=== PATIENT | female | born 1980 | race Caucasian/White ===

== ENCOUNTER 2021-08-20 07:43 | Inpatient (IN) | payer OTHER, SELFPAY ==
[2021-08-20] VITALS (19 sets, daily range): BP systolic 98–130; BP diastolic 56–79; PULSE 66–115; RESP 14–32; TEMP 35.8–36.9; O2SAT 86–100; BMI 28.7
--- NOTE | ~2021-08-20 | XR_ITS ---
EXAMINATION: XR chest 1V portable DATE: 08/23/2021 06:41 INDICATION: Shortness of breath TECHNIQUE: frontal view of the chest was obtained. COMPARISON: Chest radiograph and CT dated 08/20/2021 FINDINGS: No significant change in subtle patchy airspace opacities in the right mid to lower lung zone and to lesser degree at the medial left lower lung zone consistent with pneumonia. No pleural effusion or pn eumothorax. The cardiomediastinal silhouette is normal. Mild thoracic dextrocurvature. IMPRESSION: 1. Unchanged opacities in the right mid to lower and left lower lung zones consistent with pneumonia. Reviewed, dictated and finalized at location A. IMPRESSION: 1. Unchanged opacities in the right mid to lower and left lower lung zones cons istent with pneumonia.
--- NOTE | ~2021-08-20 | XR_ITS ---
XR chest 1V portable 08/20/2021 08:23 Indication: Patient is unresponsive Procedure: AP portable chest Comparison: Comparison to multiple prior studies sequentially, with oldest reviewed study dated 03/05. Findings: There is extensive bilateral airspace disease, consistent with pneumonia. No pleural effusi on or pneumothorax. No acute osseous abnormality. Impression: 1: Bilateral asymmetric airspace disease, compatible with pneumonia. Reviewed, dictated and finalized at location B. Impression: 1: Bilateral asymmetric airspace disease, compatible with pneumonia.
--- NOTE | ~2021-08-20 | XR_ITS ---
EXAMINATION: XR chest 1V portable DATE: 08/23/2021 10:26 INDICATION: Shortness of breath TECHNIQUE: frontal view of the chest was obtained. COMPARISON: Chest radiograph dated 08/23/2021 at 6:20 AM FINDINGS: Interval increase in pulmonary vascular congestion but without letha pulmonary edema. No pleural effu kathrin or pneumothorax. The cardiomediastinal silhouette is normal. Peripheral IV at the left upper arm . IMPRESSION: 1. Interval development of pulmonary vascular congestion without letha pulmonary edema. Reviewed, dictated and finalized at location A. IMPRESSION: 1. Interval development of pulmonary vascular congestion without letha pulmonar y edema.
--- NOTE | ~2021-08-20 | CT_ITS ---
EXAMINATION: CTA chest PE protocol DATE: 08/20/2021 13:48 INDICATION: Unresponsive. TECHNIQUE: Computed tomography angiography (CTA) of the chest was performed with 100 mL Omnipaque-350 intravenous contrast timed to evaluate the pulmonary arteries. Coronal maximum intensity projection 3D-reconstructions were created by the technologist. Automated exposure control and iterative reconst ruction technique were employed. The dose-length product was 222.43 mGy-cm. COMPARISON: CT abdomen 07/16/2017 FINDINGS: There are patchy airspace and groundglass opacities in all lobes with a posterior predomina nce. No pleural effusion. The heart size is normal. No pericardial effusion. There is no pulmonary em bolus. There is thoracic dextrocurvature and mild spondylosis. IMPRESSION: 1. No pulmonary embolus. 2. Diffuse lung disease, consistent with pneumonia versus pulmonary edema. Reviewed, dictated and finalized at location A.
[2021-08-20] MEDS: NALOXONE HCL INJ 2 MG/2 ML AMP (07:49)
--- NOTE | 2021-08-20 07:53 | ECG_ITS ---
Measurements Intervals [place] Rate: 99 P: 65 NM: 139 QRS: 74 QRSD: 87 T: 58 QT: 347 QTc: 446 Interpretive Statements SINUS RHYTHM NORMAL ECG Electronically Signed On 08-20-2021 8:09:20 CDT by Israel Tong D.O.
--- NOTE | 2021-08-20 07:53 | ED.OVERDOSE ---
HPI - Overdose General Chief Complaint: Overdose Stated Complaint: took cocaine, not feeling well, arouses to painful Time Seen by Provider: 08/20/21 07:52 Source: family, EMS and RN notes reviewed Mode of arrival: EMS Limitations: clinical condition History of Present Illness HPI Narrative: EMT got called by the patient's kids who found that her mom on the floor of the bathroom, lethargic, sleepy, slowly answering question. Patient told EMT that she had cocaine. Related Data Allergies Allergy/AdvReac Type Severity Reaction Status Date / Time No Known Allergies Allergy Unverified 04/28/18 08:42 Review of Systems Review of Systems: ROS unobtainable: Yes unobtainable due to mental status PMFSH Family History Family History Mother Hypertension Father Family history of diabetes mellitus in first degree relative Other Diabetes mellitus Family history of coronary artery disease Family history of malignant neoplasm Social History Social History Smoking status: Current every day smoker Alcohol intake: never Substance use type: crack/cocaine and IV drugs Exam Narrative: General appearance: Well-developed, well-nourished Skin: Normal color Head: Normocephalic, nontraumatic Eyes: Clear conjunctiva ENT: Oropharynx normal, ears normal, nose normal Neck: Supple, nontender Chest and respiratory: Airway patent, no respiratory distress, no accessory muscle use Heart: Regular rate/rhythm Abdomen: Soft, nontender, no organomegaly, quiet bowel sounds Vascular: Normal peripheral pulses, normal capillary refill. Musculoskeletal: Normal range of motion, nontender back Neurologic: Lethargic, responding to painful stimulation Course Course Emergency Course: Patient arrived to the ED by ambulance unresponsive with drug overdose. Patient gradually started becoming awake but still extremely tired, unable to manage her extremities or stand up without assistance. Work-up showed positive drug screen for amphetamine, benzodiazepine and cocaine. Chest x-ray showed bilateral basilar pneumonia, aspiration pneumonia would be extremely less likely, patient denies any vomiting or trouble breathing or swallowing. Blood gas showed severe hypoxia, which is not consistent with the pneumonia level at the x-ray, CTA to rule out PE ordered Vital Signs Vital signs: Vital Signs Temperature 35.8 C L 08/20/21 07:44 Pulse Rate 115 H 08/20/21 07:44 Respiratory Rate 20 08/20/21 07:44 Blood Pressure 98/78 L 08/20/21 07:44 Pulse Oximetry 92 08/20/21 07:44 Temperature 35.8 C L 08/20/21 07:44 Pulse Rate 102 H 08/20/21 09:55 Respiratory Rate 22 H 08/20/21 09:55 Blood Pressure 108/79 08/20/21 12:59 Pulse Oximetry 91 08/20/21 13:09 MDM - Overdose Lab Data Result diagrams: 08/20/21 08:54 08/20/21 08:53 Labs: Lab Results 08/20/21 08/20/21 08/20/21 Range/Units 08:08 08:10 08:10 WBC (4.5-10.0) K/mm3 RBC (4.2-5.4) M/mm3 Hgb (12.0-15.0) g/dL Hct (37.0-47.0) % MCV (80-100) fl MCH (26-34) pg MCHC (32-36) g/dl RDW (11.5-14.5) % Plt Count (150-375) k/mm3 MPV (7.4-10.4) fl Immature Gran % (Auto) (0-0.5) % Neut % (Auto) (45.5-73.1) % Lymph % (Auto) (18.3-44.2) % Gates % (Auto) (2.6-8.5) % Eos % (Auto) (0-4.4) % Baso % (Auto) (0.2-1.2) % Lymph # (Auto) (0.9-3.2) K/mm3 Gates # (Auto) (0.1-0.6) K/mm3 Eos # (Auto) (0-0.3) K/mm3 Baso # (Auto) (0.0-0.1) K/mm3 Abs Immat Gran (auto) (0.00-0.031) K/mm3 Absolute
[2021-08-20 08:11] LABS: Glucose Point of Care 75 mg/dl (65-105)
[2021-08-20 08:38] LABS: Barbiturate Screen Urine Negative (Negative); Benzodiazepines Screen Urine Positive (Negative)
[2021-08-20 08:45] LABS: Cannabinoid Screen Urine Negative (Negative); Cocaine Screen Urine Positive (Negative); Methadone Screen Urine Negative (Negative); Opiate Screen Urine Negative (Negative); Phencyclidine Screen Urine Negative (Negative)
[2021-08-20 08:46] LABS: Amphetamine Screen Urine Positive (Negative)
--- NOTE | 2021-08-20 08:50 | PC.NURSE ---
pt reported to [facility]. intake #[id number]. Spoke with Rebecca Yin
[2021-08-20 08:54] LABS: Appearance Urine Clear (Clear); Bilirubin Urine Negative (Negative); Blood Urine Negative (Negative); Color Urine Yellow (Yellow); Glucose Urine UA Trace mg/dL (Negative); Ketones Urine Negative (Negative); Leukocyte Esterase Ur Negative LEU/UL (Negative); Nitrate Urine Negative (Negative); Protein Urine 1+ mg/dL (Negative); Specific Grav Ur >= 1.030 (1.001-1.035); Urobilinogen Urine 0.2 mg/dL (<2.0); pH Urine 5.5 (5.0-9.0)
[2021-08-20 08:55] LABS: Add Urine Microscopic? YES
[2021-08-20 09:02] LABS: Mucus Urine Rare /lpf; RBC Urine 0-2 /hpf (0-2); Squamous Epithelial Cell Urine Few /hpf (Few)
[2021-08-20 09:08] LABS: Basophils Percent Auto 0.2 % (0.2-1.2); Hematocrit 41.5 % (37.0-47.0); Hemoglobin 13.2 g/dL (12.0-15.0); Immature Granulocyte Absolute 0.03 K/mm3 (0.00-0.031); Immature Granulocyte Percent A 0.3 % (0-0.5); Lymphocytes Absolute Auto 0.56 K/mm3 (0.9-3.2); Lymphocytes Percent Auto 5.3 % (18.3-44.2); Mean Corpuscular HGB Conc 31.8 g/dl (32-36); Mean Corpuscular Hemoglobin 29.7 pg (26-34); Mean Corpuscular Volume 93.5 fl (80-100); Mean Platelet Volume 9.6 fl (7.4-10.4); Monocytes Absolute Auto 0.3 K/mm3 (0.1-0.6); Monocytes Percent Auto 3.2 % (2.6-8.5); Neutrophils Absolute Auto 9.7 K/mm3 (1.3-6.7); Platelet Count Result 285 k/mm3 (150-375); Red Blood Count 4.44 M/mm3 (4.2-5.4); Red Cell Distribution Width 12.6 % (11.5-14.5); White Blood Count 10.6 K/mm3 (4.5-10.0)
[2021-08-20] MEDS: SODIUM CHLORIDE 0.9% IV 1,000 ML 999 ML IV CONT ×3 (09:08→11:06)
[2021-08-20 09:22] LABS: Lactic Acid Reflex 1.7 mmol/L (0.7-2.0)
[2021-08-20 09:23] LABS: Acetaminophen < 10 ug/mL (10-30); Ethanol < 10 mg/dL (<10); Salicylate < 1.0 mg/dL (2-20)
[2021-08-20 09:36] LABS: Alanine Aminotransferase 48 U/L (6-35); Alkaline Phosphatase 94 U/L (38-126); Anion Gap 9 mmol/L (8-16); Aspartate Amino Transferase 54 U/L (14-36); Bilirubin,Total 0.3 mg/dL (0.2-1.3); Blood Urea Nitrogen 16 mg/dL (7-17); CRP < 0.5 mg/dL (<1.0); Calcium 8.7 mg/dL (8.4-10.2); Carbon Dioxide 24 mmol/L (22-30); Chloride 106 mmol/L (98-107); Estimated CRCL calculation 54 ml/min; Estimated Glomerular Filt Rate 55; Glucose 99 mg/dL (65-110); Potassium 4.6 mmol/L (3.4-5.0); Sodium 139 mmol/L (137-145)
[2021-08-20 09:51] LABS: Influenza A QL RT-PCR Negative (Negative); Influenza B QL RT-PCR Negative (Negative); SARS-CoV-2 RNA PCR Negative
--- NOTE | 2021-08-20 11:07 | PC.NURSE ---
patient's adult son is present in the room along with patient's mother. when questioned patient states that she did not talk to her teenage children for more than 24 hours prior to them finding her this morning. unsure how long she was passed out
[2021-08-20 13:07] LABS: Alveolar/Arterial O2 Gradient 46.8 mmHg; Base Excess ABG -4.9 mEq/l (+/-2.0); Fractional Inspired Oxygen 21 %; HCO3 ABG 20.6 mEq/l (22.0-26.0); Oxygen Content ABG 15.3 %vol (16.0-22.0); PCO2 ABG 39.9 mmHg (35.0-45.0); PO2 ABG 55.2 mmHg (80.0-100.0); PO2 FiO2 Ratio Arterial Blood 2.63 %; Total Hemoglobin 12.4 g/dL (12.0-18.0); pH ABG 7.331 (7.350-7.450)
[2021-08-20 13:08] LABS: Device ROOM AIR; Modified Allen's Test Pass; Oxygen Saturation ABG 86.8 % (95.0-100.0); Oxyhemoglobin 87.5 % THb (90.0-100.0); Site Drawn RIGHT RADIAL
[2021-08-20] MEDS: SODIUM CHLORIDE 0.9% IV 1,000 ML 125 ML IV CONT ×2 (13:57→20:34)
--- NOTE | 2021-08-20 15:31 | ADMGEN ---
This patient, Jen Sanchez, was admitted to [facility] Surg Room 315-01. Patient/family oriented to hospital policies and general routines including ID bracelet, bed and alarms, visiting hours, pain management, procedures, bathroom and other care routines, personal items, smoking policy, room service/diet, and visiting hours. Information on how to activate the Rapid Response Team has been discussed. Patient/Family are encouraged to report perceived risks to care and to ask questions if they do not understand what they are told or what they should do.
[2021-08-20] MEDS: ALBUTEROL SULFATE NEB 2.5 MG/3 ML INH 5 MG INHALATION (17:41)
--- NOTE | 2021-08-20 20:10 | PM.IMHP ---
H&P: HPI History of Present Illness Date/Time: Patient was placed observation status for expected length of stay less than 23 hours for management, will plan to re-evaluate tomorrow for improvement. 08/20/21 20:10 Chief Complaint: Overdose Narrative: Ms. Sanchez is a 41-year-old female who presented to the emergency room via EMS after being found by her children in the bathroom very lethargic and slow to answer questions. Patient did tell EMS that she had injected cocaine just prior to her children finding her. At this point time patient is still lethargic, will arouse to verbal stimulation. Patient will answer short questions. Patient states that she thought she was only injecting cocaine, but she was unsure if there was fentanyl mixed in with this. Patient states she does not recall being found by her children. Patient denies any cough, fever, or chills. Patient states that she did notice shortness of breath when she woke up in the emergency room. Upon evaluation emergency room patient patient was noted to be hypoxic even after waking up. ABG was performed that did show hypoxia. Chest x-ray was performed and showed bilateral pneumonia. CTA was also performed to rule out pulmonary embolism which showed no pulmonary embolism but did show bilateral infiltrates consistent with pneumonia. Patient denies any past medical history at this point time. Review of Systems Review of Systems: A 12 point review of systems was completed patient all pertinent positive and negative per HPI the remainder are unremarkable. [facility] Past Medical History Medical History (Updated 08/20/21 @ 20:20 by Kady Harris APRN) Drug abuse Surgical History Surgical History (Updated 08/20/21 @ 20:20 by Kady Harris APRN) History of hernia repair Family History Family History Mother Hypertension Father Family history of diabetes mellitus in first degree relative Other Diabetes mellitus Family history of coronary artery disease Family history of malignant neoplasm Social History Social History Years smoked: 10 Smoking status: Former smoker Tobacco type: cigarettes and e-cigarettes/vaping Alcohol intake: never Substance use type: crack/cocaine and IV drugs Last use: 08/20/21 Spiritual care concerns: No Meds Home Medications and Allergies Home Medications Medication Instructions Recorded Confirmed Type albuterol sulfate 2 inh INHALATION Q4H PRN 08/20/21 08/20/21 History Allergies Allergy/AdvReac Type Severity Reaction Status Date / Time No Known Allergies Allergy Unverified 08/20/21 15:55 Vital Signs Vital Signs - 24 hr 08/20/21 07:44 08/20/21 08:03 08/20/21 09:11 Temperature 35.8 C L Pulse Rate 115 H 66 Respiratory Rate 20 28 H 18 Blood Pressure 98/78 L 130/56 L Pulse Oximetry 92 100 08/20/21 09:55 08/20/21 10:59 08/20/21 11:42 Temperature Pulse Rate 102 H Respiratory Rate 22 H Blood Pressure 102/70 Pulse Oximetry 100 94 97 08/20/21 12:21 08/20/21 12:52 08/20/21 12:59 Temperature Pulse Rate Respiratory Rate Blood Pressure 108/79 Pulse Oximetry 99 94 08/20/21 13:07 08/20/21 13:09 08/20/21 15:20 Temperature Pulse Rate 103 H Respiratory Rate 14 Blood Pressure 104/75 Pulse Oximetry 86 L 91 98 08/20/21 15:59 08/20/21 16:00 08/20/21 17:45 Temperature 36.9 C Pulse Rate 108 H 104 H Respiratory Rate 18 32 H Blood Pressure 105/79 Pulse Oximetry 94 96 08/20/21 17:50 08/20/21 17:55 Temperature Pulse Rate 101 H Respiratory Rate 28 H Blood Pressure Pulse Oximetry 92 Exam Narrative: Constitutional: Patient is well-nourished in no acute distress. Patient is lethargic and oriented x3 HEENT: Moist mucous membranes. No scleral icterus. No lymphadenopathy. Neck: No carotid bruits noted no JVD note
[2021-08-20 20:46] LABS: Alveolar/Arterial O2 Gradient 85.6 mmHg; Base Excess ABG -3.2 mEq/l (+/-2.0); Device NASAL CANNULA; Fractional Inspired Oxygen 32 %; HCO3 ABG 21.1 mEq/l (22.0-26.0); Modified Allen's Test Pass; Oxygen Content ABG 16.4 %vol (16.0-22.0); Oxygen Saturation ABG 97.6 % (95.0-100.0); Oxyhemoglobin 96.4 % THb (90.0-100.0); PCO2 ABG 35.4 mmHg (35.0-45.0); PO2 ABG 101.1 mmHg (80.0-100.0); PO2 FiO2 Ratio Arterial Blood 3.16 %; Site Drawn RIGHT RADIAL; pH ABG 7.393 (7.350-7.450)
[2021-08-21] VITALS (17 sets, daily range): BP systolic 100–134; BP diastolic 66–85; PULSE 98–113; RESP 16–26; TEMP 36.5–37.4; O2SAT 95–100
[2021-08-21] MEDS: ALBUTEROL SULFATE (*SP) AEROSOL 1 PUFF 2 PUFF INHALATION (00:25)
[2021-08-21] MEDS: ALBUTEROL SULFATE NEB 2.5 MG/3 ML INH 5 MG INHALATION ×4 (03:19→19:51)
[2021-08-21] MEDS: SODIUM CHLORIDE 0.9% IV 1,000 ML 125 ML IV CONT ×2 (05:19→13:21)
[2021-08-21] MEDS: ENOXAPARIN 40 MG/0.4 ML SYRINGE SUB-Q (08:07)
[2021-08-21 09:24] LABS: Basophils Percent Auto 0.1 % (0.2-1.2); Eosinophils Percent Auto 0.2 % (0-4.4); Hematocrit 35.4 % (37.0-47.0); Hemoglobin 11.6 g/dL (12.0-15.0); Immature Granulocyte Absolute 0.07 K/mm3 (0.00-0.031); Immature Granulocyte Percent A 0.4 % (0-0.5); Lymphocytes Absolute Auto 2.25 K/mm3 (0.9-3.2); Lymphocytes Percent Auto 14.1 % (18.3-44.2); Mean Corpuscular HGB Conc 32.8 g/dl (32-36); Mean Corpuscular Hemoglobin 30.4 pg (26-34); Mean Corpuscular Volume 92.7 fl (80-100); Mean Platelet Volume 9.7 fl (7.4-10.4); Monocytes Absolute Auto 0.9 K/mm3 (0.1-0.6); Monocytes Percent Auto 5.7 % (2.6-8.5); Neutrophils Absolute Auto 12.7 K/mm3 (1.3-6.7); Neutrophils Percent Auto 79.5 % (45.5-73.1); Platelet Count Result 225 k/mm3 (150-375); Red Blood Count 3.82 M/mm3 (4.2-5.4); Red Cell Distribution Width 12.8 % (11.5-14.5)
[2021-08-21 09:41] LABS: Alanine Aminotransferase 34 U/L (6-35); Albumin Level 3.1 g/dL (3.5-5.1); Alkaline Phosphatase 85 U/L (38-126); Anion Gap 4 mmol/L (8-16); Aspartate Amino Transferase 31 U/L (14-36); Bilirubin,Total 0.4 mg/dL (0.2-1.3); Blood Urea Nitrogen 7 mg/dL (7-17); Calcium 7.7 mg/dL (8.4-10.2); Carbon Dioxide 25 mmol/L (22-30); Chloride 105 mmol/L (98-107); Estimated CRCL calculation 70 ml/min; Estimated Glomerular Filt Rate > 60; Glucose 189 mg/dL (65-110); Magnesium 1.9 mg/dL (1.6-2.3); Potassium 3.9 mmol/L (3.4-5.0); Sodium 134 mmol/L (137-145)
--- NOTE | 2021-08-21 11:29 | PM.IMPN ---
Progress Note: A&P Assessment and Plan (1) Pneumonia: Qualifiers: Laterality: bilateral Lung location: lower lobe of lung Pneumonia type: due to unspecified organism Qualified Code(s): J18.9 - Pneumonia, unspecified organism Code(s): J18.9 - Pneumonia, unspecified organism Status: Acute Assessment and Plan: Monitor vital signs, I&Os, neuro status and patient is a fall risk Follow WBC, serum electrolytes, temperature curves and cultures Send sputum cultures Oxygen via NC; wean as tolerated. Keep SpO2 greater than 88% Gentle IV fluid resuscitation Ceftriaxone 2 gram IV q24H and Azithromycin 500mg IV q24H DuoNeb q6H and Albuterol q2H PRN P.r.n. Tylenol, Zofran, and melatonin (2) Drug overdose: Qualifiers: Encounter type: initial encounter Injury intent: accidental or unintentional Qualified Code(s): T50.901A - Poisoning by unspecified drugs, medicaments and biological substances, accidental (unintentional), initial encounter Code(s): T50.901A - Poisoning by unspecified drugs, medicaments and biological substances, accidental (unintentional), initial encounter Status: Acute Assessment and Plan: Did discuss illicit drug cessation with patient. Patient states that she thought she was only injecting cocaine was unaware that there were other substances in the the syringe. Will continue to encourage cessation. Patient reports using dirty needles. She has never been tested for HIV or hepatitis. LFTs WNL. Will send off PCRs. Consult case management for additional resources for substance abuse. Subjective Date/time seen: 08/21/21 11:29 Patient is alert and oriented this morning. She reports that she does not wish any family members to know about her medical conditions are while she is in the hospital. I explained to her hip of violations and that we will Uphold her privacy here in the hospital. Patient is currently being treated for community-acquired pneumonia and was placed on Rocephin and azithromycin. Patient would also like to seek counseling for her amphetamine, cocaine and benzo use. She reports that she stop Suboxone approximately 1 year ago and. Counseling 1 year ago. And she just was able to receive her children full-time from [facility] and now has ruined does chances. Discussed possible counseling and family counseling in order to maintain her family [place]. Will consult Case Management to seek further resources for the patient in the area. Patient may benefit from returning to Suboxone use. She understands that that medication should be used in short-term however we can use it in long-term to defer from further drugs. Discussed different coping mechanisms at bedside and remaining 3 from drugs. Patient does endorse IV drug use and using dirty needles therefore I will place hepatitis panels and HIV panels. Patient currently does have normal LFTs Review of Systems Review of Systems: All systems reviewed & are unremarkable except as noted in HPI and below Exam Narrative: General: No acute distress. Mental Status: Awake, alert and oriented to person, place, and time with clear speech. Skin: Skin in warm, dry and intact without rashes or lesions. Scattered abrasions to bilateral upper extremities Head: Normocephalic and atraumatic. Eyes: Conjunctivae are clear without exudates or hemorrhage. Sclera is non-icteric. EOM are intact, PERRLA. Ears: The external ear and canal are non-tender and without swelling or discharge. Nose: Nasal mucosa is pink and moist. Septum midline. Nares patent bilaterally. Throat: Oral mucosa pink and moist with good dentition. Tongue midline. Neck: The neck supple without adenopathy. Trachea midline. No JVD. Cardiac: S1 and S2 regular rate and rhythm. No murmurs, gallops, or rubs auscultated. Respiratory: Chest wall symmetric, nontender and without deformity or trauma. Respirations even and unlabored. Lung sounds are inspiratory and expiratory wh
[2021-08-21 12:38] LABS: Hepatitis B Surface Antigen Negative (Negative)
[2021-08-21 12:43] LABS: HAV RESULT Negative (Negative); Hepatitis B Core IgM Result Negative (Negative)
[2021-08-21 12:52] LABS: HIV 1/2 Ab P24 Ag Result Negative (Negative)
[2021-08-21 12:55] LABS: Hepatitis C Virus Antibody Negative (Negative)
[2021-08-21] MEDS: guaiFENesin 12 HR 600 MG TABCR PO (20:33)
[2021-08-21] MEDS: MELATONIN 5 MG TABLET PO (20:33)
[2021-08-21] MEDS: ACETAMINOPHEN 325 MG TABLET 650 MG PO (20:36)
[2021-08-22] VITALS (20 sets, daily range): BP systolic 114–132; BP diastolic 73–84; PULSE 94–112; RESP 16–24; TEMP 36.4–37.1; O2SAT 95–100
[2021-08-22] MEDS: ALBUTEROL SULFATE NEB 2.5 MG/3 ML INH 5 MG INHALATION ×4 (02:09→21:41)
[2021-08-22 06:21] LABS: Basophils Percent Auto 0.1 % (0.2-1.2); Eosinophils Absolute Auto 0.1 K/mm3 (0-0.3); Eosinophils Percent Auto 0.5 % (0-4.4); Hematocrit 33.6 % (37.0-47.0); Immature Granulocyte Absolute 0.03 K/mm3 (0.00-0.031); Immature Granulocyte Percent A 0.3 % (0-0.5); Lymphocytes Absolute Auto 1.57 K/mm3 (0.9-3.2); Lymphocytes Percent Auto 16.7 % (18.3-44.2); Mean Corpuscular HGB Conc 32.7 g/dl (32-36); Mean Corpuscular Hemoglobin 29.7 pg (26-34); Mean Corpuscular Volume 90.8 fl (80-100); Monocytes Absolute Auto 0.6 K/mm3 (0.1-0.6); Monocytes Percent Auto 6.7 % (2.6-8.5); Neutrophils Absolute Auto 7.1 K/mm3 (1.3-6.7); Neutrophils Percent Auto 75.7 % (45.5-73.1); Platelet Count Result 242 k/mm3 (150-375); Red Cell Distribution Width 12.3 % (11.5-14.5); White Blood Count 9.4 K/mm3 (4.5-10.0)
[2021-08-22 06:36] LABS: Anion Gap 6 mmol/L (8-16); Blood Urea Nitrogen 6 mg/dL (7-17); Calcium 8.1 mg/dL (8.4-10.2); Carbon Dioxide 24 mmol/L (22-30); Chloride 106 mmol/L (98-107); Estimated CRCL calculation 102 ml/min; Estimated Glomerular Filt Rate > 60; Glucose 118 mg/dL (65-110); Potassium 3.7 mmol/L (3.4-5.0); Sodium 136 mmol/L (137-145)
[2021-08-22 06:39] LABS: Lactic Acid Reflex 0.7 mmol/L (0.7-2.0)
[2021-08-22 07:57] LABS: Thyroid Stimulating Hormone Reflex 0.232 uIU/mL (0.465-4.68)
--- NOTE | 2021-08-22 08:46 | PCRCNOTE ---
Pt does not require oxygen while resting or with activity. PTs o2 sats while resting were 97. When pt walked around her sat did drop but only to 95. Pts heart rate was 109 at the highest, but that is what it has been running throughout the night. Pt states she does not feel short of breath and is feel okay. Pt does not need oxygen when they go home
[2021-08-22] MEDS: hydrOXYzine HCL 25 MG TABLET PO (09:09)
[2021-08-22] MEDS: ACETAMINOPHEN 325 MG TABLET 650 MG PO (09:09)
[2021-08-22] MEDS: guaiFENesin 12 HR 600 MG TABCR PO ×2 (09:09→20:49)
[2021-08-22] MEDS: ENOXAPARIN 40 MG/0.4 ML SYRINGE SUB-Q (09:10)
--- NOTE | 2021-08-22 10:07 | PM.IMPN ---
Progress Note: A&P Assessment and Plan (1) Pneumonia: Qualifiers: Laterality: bilateral Lung location: lower lobe of lung Pneumonia type: due to unspecified organism Qualified Code(s): J18.9 - Pneumonia, unspecified organism Code(s): J18.9 - Pneumonia, unspecified organism Status: Acute Assessment and Plan: Monitor vital signs, I&Os, neuro status and patient is a fall risk Follow WBC, serum electrolytes, temperature curves and cultures Send sputum cultures Oxygen via NC; wean as tolerated. Keep SpO2 greater than 88% Gentle IV fluid resuscitation Ceftriaxone 2 gram IV q24H and Azithromycin 500mg IV q24H DuoNeb q6H and Albuterol q2H PRN P.r.n. Tylenol, Zofran, and melatonin (2) Drug overdose: Qualifiers: Encounter type: initial encounter Injury intent: accidental or unintentional Qualified Code(s): T50.901A - Poisoning by unspecified drugs, medicaments and biological substances, accidental (unintentional), initial encounter Code(s): T50.901A - Poisoning by unspecified drugs, medicaments and biological substances, accidental (unintentional), initial encounter Status: Acute Assessment and Plan: Did discuss illicit drug cessation with patient. Patient states that she thought she was only injecting cocaine was unaware that there were other substances in the the syringe. Will continue to encourage cessation. Consult case management for additional resources for substance abuse. HIV and hepatitis panels negative, LFTs WNL (3) Headache: Code(s): R51.9 - Headache, unspecified Status: Acute Assessment and Plan: Administer fioricet x1 Keep the room dark Monitor for signs and symptoms drug abuse withdrawal Subjective Date/time seen: 08/22/21 10:07 Patient is doing well this morning. She did report a headache and was sitting in a dark room with a washcloth over her face. Additional medication provided to the patient. Patient denies any additional shortness of breath. She remains on oxygen to maintain SpO2. Continue Rocephin and azithromycin. Labs improved. Continue to monitor. Patient denies any nausea, vomiting upset stomach or diarrhea. Review of Systems Review of Systems: All systems reviewed & are unremarkable except as noted in HPI and below Exam Narrative: General: No acute distress. Mental Status: Awake, alert and oriented to person, place, and time with clear speech. Skin: Skin in warm, dry and intact without rashes or lesions. Scattered abrasions to bilateral upper extremities Head: Normocephalic and atraumatic. Eyes: Conjunctivae are clear without exudates or hemorrhage. Sclera is non-icteric. EOM are intact, PERRLA. Ears: The external ear and canal are non-tender and without swelling or discharge. Nose: Nasal mucosa is pink and moist. Septum midline. Nares patent bilaterally. Throat: Oral mucosa pink and moist with good dentition. Tongue midline. Neck: The neck supple without adenopathy. Trachea midline. No JVD. Cardiac: S1 and S2 regular rate and rhythm. No murmurs, gallops, or rubs auscultated. Respiratory: Chest wall symmetric, nontender and without deformity or trauma. Respirations even and unlabored. Lung sounds are inspiratory and expiratory wheezes to auscultation in all lobes Abdominal: Abdomen soft, round and non-tender to palpation. Bowel sounds present and normoactive in all 4 quadrants. Spine: Neck and back with grossly normal curvature, no deformity in appearance or signs of trauma. Extremities: Upper and lower extremities atraumatic without tenderness or deformity. Full range of motion and muscle strength 5/5 to all extremities bilaterally. Neurological: Full and symmetric motor and light touch sensation bilaterally. Cranial nerves II-XII grossly intact. Objective Data Vital Signs Vital Signs: Vital Signs - 24 hr 08/21/21 11:49 08/21/21 15:35 08/21/21 15:41 Temperature 98.5 F 98.8 F Pulse Rate 104 H 102 H 112 H Re
[2021-08-22 10:34] LABS: Free T4 Free Thyroxine Reflex 1.41 ng/dL (0.78-2.19)
[2021-08-22 11:36] LABS: Total Triiodothyronine (T3) 1.11 NG/ML (0.97-1.69)
[2021-08-22] MEDS: ACETAMINOPHEN/BUTALBITAL/CAFFEINE 325-50-40 MG TABLET (FIORICET) 1 TAB PO (12:22)
[2021-08-22] MEDS: SODIUM CHLORIDE 0.9% IV 1,000 ML 75 ML IV CONT (12:27)
[2021-08-22] MEDS: MELATONIN 5 MG TABLET PO (20:49)
[2021-08-23] VITALS (9 sets, daily range): BP systolic 124–140; BP diastolic 82–90; PULSE 90–106; RESP 15–20; TEMP 36.8–36.9; O2SAT 98–100
[2021-08-23] MEDS: ALBUTEROL SULFATE NEB 2.5 MG/3 ML INH 5 MG INHALATION ×3 (02:40→20:18)
[2021-08-23] MEDS: SODIUM CHLORIDE 0.9% IV 1,000 ML 75 ML IV CONT (05:51)
[2021-08-23 06:20] LABS: Basophils Percent Auto 0.3 % (0.2-1.2); Eosinophils Absolute Auto 0.1 K/mm3 (0-0.3); Eosinophils Percent Auto 1.1 % (0-4.4); Hematocrit 34.5 % (37.0-47.0); Hemoglobin 11.2 g/dL (12.0-15.0); Immature Granulocyte Absolute 0.02 K/mm3 (0.00-0.031); Immature Granulocyte Percent A 0.3 % (0-0.5); Lymphocytes Absolute Auto 1.83 K/mm3 (0.9-3.2); Lymphocytes Percent Auto 28.4 % (18.3-44.2); Mean Corpuscular HGB Conc 32.5 g/dl (32-36); Mean Corpuscular Hemoglobin 30.3 pg (26-34); Mean Corpuscular Volume 93.2 fl (80-100); Mean Platelet Volume 9.8 fl (7.4-10.4); Monocytes Absolute Auto 0.5 K/mm3 (0.1-0.6); Neutrophils Absolute Auto 4.1 K/mm3 (1.3-6.7); Neutrophils Percent Auto 62.9 % (45.5-73.1); Platelet Count Result 260 k/mm3 (150-375); Red Cell Distribution Width 12.3 % (11.5-14.5); White Blood Count 6.4 K/mm3 (4.5-10.0)
[2021-08-23 06:33] LABS: Anion Gap 6 mmol/L (8-16); Blood Urea Nitrogen 7 mg/dL (7-17); Calcium 8.3 mg/dL (8.4-10.2); Carbon Dioxide 24 mmol/L (22-30); Chloride 110 mmol/L (98-107); Estimated CRCL calculation 102 ml/min; Estimated Glomerular Filt Rate > 60; Glucose 105 mg/dL (65-110); Potassium 3.8 mmol/L (3.4-5.0); Sodium 140 mmol/L (137-145)
[2021-08-23] MEDS: DOXYCYCLINE HYCLATE 100 MG TABLET PO ×2 (09:37→20:20)
[2021-08-23] MEDS: guaiFENesin 12 HR 600 MG TABCR PO ×2 (09:38→20:19)
[2021-08-23] MEDS: ENOXAPARIN 40 MG/0.4 ML SYRINGE SUB-Q (09:38)
--- NOTE | 2021-08-23 10:04 | PM.IMPN ---
Progress Note: A&P Assessment and Plan (1) Pneumonia: Qualifiers: Laterality: bilateral Lung location: lower lobe of lung Pneumonia type: due to unspecified organism Qualified Code(s): J18.9 - Pneumonia, unspecified organism Code(s): J18.9 - Pneumonia, unspecified organism Status: Acute Assessment and Plan: Monitor vital signs, I&Os, neuro status and patient is a fall risk Follow WBC, serum electrolytes, temperature curves and cultures Send sputum cultures Oxygen via NC; wean as tolerated. Keep SpO2 greater than 88% Stop Gentle IV fluid resuscitation Ceftriaxone 2 gram IV q24H and Azithromycin 500mg IV q24H, transition to doxycycline DuoNeb q6H and Albuterol q2H PRN P.r.n. Tylenol, Zofran, and melatonin (2) Drug overdose: Qualifiers: Encounter type: initial encounter Injury intent: accidental or unintentional Qualified Code(s): T50.901A - Poisoning by unspecified drugs, medicaments and biological substances, accidental (unintentional), initial encounter Code(s): T50.901A - Poisoning by unspecified drugs, medicaments and biological substances, accidental (unintentional), initial encounter Status: Acute Assessment and Plan: Did discuss illicit drug cessation with patient. Patient states that she thought she was only injecting cocaine was unaware that there were other substances in the the syringe. Will continue to encourage cessation. Consult case management for additional resources for substance abuse. HIV and hepatitis panels negative, LFTs WNL (3) Headache: Code(s): R51.9 - Headache, unspecified Status: Acute Assessment and Plan: Administer fioricet x1 Keep the room dark Monitor for signs and symptoms drug abuse withdrawal --resolved Subjective Date/time seen: 08/23/21 10:04 Patient is doing well. At bedside. She does report some mild chest discomfort with inspiration. No other acute events reported by RN during the night. WBC is improved. She is off oxygen. Review of Systems Review of Systems: All systems reviewed & are unremarkable except as noted in HPI and below Exam Narrative: General: No acute distress. Mental Status: Awake, alert and oriented to person, place, and time with clear speech. Skin: Skin in warm, dry and intact without rashes or lesions. Scattered abrasions to bilateral upper extremities Head: Normocephalic and atraumatic. Eyes: Conjunctivae are clear without exudates or hemorrhage. Sclera is non-icteric. EOM are intact, PERRLA. Ears: The external ear and canal are non-tender and without swelling or discharge. Nose: Nasal mucosa is pink and moist. Septum midline. Nares patent bilaterally. Throat: Oral mucosa pink and moist with good dentition. Tongue midline. Neck: The neck supple without adenopathy. Trachea midline. No JVD. Cardiac: S1 and S2 regular rate and rhythm. No murmurs, gallops, or rubs auscultated. Respiratory: Chest wall symmetric, nontender and without deformity or trauma. Respirations even and unlabored. Lung sounds are inspiratory and expiratory wheezes to auscultation in all lobes Abdominal: Abdomen soft, round and non-tender to palpation. Bowel sounds present and normoactive in all 4 quadrants. Spine: Neck and back with grossly normal curvature, no deformity in appearance or signs of trauma. Extremities: Upper and lower extremities atraumatic without tenderness or deformity. Full range of motion and muscle strength 5/5 to all extremities bilaterally. Neurological: Full and symmetric motor and light touch sensation bilaterally. Cranial nerves II-XII grossly intact. Objective Data Vital Signs Vital Signs: Vital Signs - 24 hr 08/22/21 12:00 08/22/21 14:16 08/22/21 14:19 Temperature 98.4 F Pulse Rate 100 109 H Respiratory Rate 24 H 20 Blood Pressure 114/75 Pulse Oximetry 97 98 08/22/21 14:25 08/22/21 16:00 08/22/21 21:41 Temperature 98 F Pulse Rate 102 H 108 H 99 Respirator
[2021-08-23] MEDS: MELATONIN 5 MG TABLET PO (20:19)
[2021-08-24] MEDS: ALBUTEROL SULFATE NEB 2.5 MG/3 ML INH 5 MG INHALATION ×2 (02:20→08:48)
[2021-08-24 02:21] VITALS: PULSE 84; RESP 18
[2021-08-24 02:28] VITALS: PULSE 86; RESP 18
[2021-08-24 05:49] VITALS: BP 116/82; PULSE 92; RESP 14; TEMP 36.4; O2SAT 99
[2021-08-24 07:23] LABS: Basophils Percent Auto 0.4 % (0.2-1.2); Eosinophils Absolute Auto 0.1 K/mm3 (0-0.3); Hematocrit 36.7 % (37.0-47.0); Hemoglobin 11.9 g/dL (12.0-15.0); Immature Granulocyte Absolute 0.02 K/mm3 (0.00-0.031); Immature Granulocyte Percent A 0.3 % (0-0.5); Lymphocytes Absolute Auto 2.06 K/mm3 (0.9-3.2); Lymphocytes Percent Auto 30.4 % (18.3-44.2); Mean Corpuscular HGB Conc 32.4 g/dl (32-36); Mean Corpuscular Hemoglobin 29.8 pg (26-34); Mean Platelet Volume 9.7 fl (7.4-10.4); Monocytes Absolute Auto 0.5 K/mm3 (0.1-0.6); Monocytes Percent Auto 7.2 % (2.6-8.5); Neutrophils Absolute Auto 4.1 K/mm3 (1.3-6.7); Neutrophils Percent Auto 60.7 % (45.5-73.1); Platelet Count Result 282 k/mm3 (150-375); Red Blood Count 3.99 M/mm3 (4.2-5.4); Red Cell Distribution Width 12.2 % (11.5-14.5); White Blood Count 6.8 K/mm3 (4.5-10.0)
[2021-08-24 07:29] LABS: Anion Gap 5 mmol/L (8-16); Blood Urea Nitrogen 9 mg/dL (7-17); Calcium 8.8 mg/dL (8.4-10.2); Carbon Dioxide 25 mmol/L (22-30); Chloride 109 mmol/L (98-107); Estimated CRCL calculation 102 ml/min; Estimated Glomerular Filt Rate > 60; Glucose 110 mg/dL (65-110); Sodium 139 mmol/L (137-145)
[2021-08-24 08:00] VITALS: BP 126/80; PULSE 96; RESP 18; TEMP 35.8; O2SAT 95
[2021-08-24] MEDS: DOXYCYCLINE HYCLATE 100 MG TABLET PO (08:23)
[2021-08-24] MEDS: guaiFENesin 12 HR 600 MG TABCR PO (08:23)
[2021-08-24] MEDS: ENOXAPARIN 40 MG/0.4 ML SYRINGE SUB-Q (08:23)
[2021-08-24 08:48] VITALS: PULSE 88; RESP 18
[2021-08-24 08:58] VITALS: PULSE 86; RESP 18
--- NOTE | 2021-08-24 09:41 | PM.DS ---
DS: Admitting Diagnosis Discharge Date 08/24/2021 Admitting Diagnosis Community-acquired pneumonia Drug overdose DS: Discharge Diagnosis Discharge Diagnosis (1) Pneumonia: Qualifiers: Laterality: bilateral Lung location: lower lobe of lung Pneumonia type: due to unspecified organism Qualified Code(s): J18.9 - Pneumonia, unspecified organism Code(s): J18.9 - Pneumonia, unspecified organism Status: Acute Assessment and Plan: Monitor vital signs, I&Os, neuro status and patient is a fall risk Follow WBC, serum electrolytes, temperature curves and cultures Send sputum cultures Oxygen via NC; wean as tolerated. Keep SpO2 greater than 88% Stop Gentle IV fluid resuscitation Ceftriaxone 2 gram IV q24H and Azithromycin 500mg IV q24H, transition to doxycycline DuoNeb q6H and Albuterol q2H PRN P.r.n. Tylenol, Zofran, and melatonin One positive blood culture for actinomyces spec., patient currently being treated with doxycycline total abx therapy 7 days (2) Drug overdose: Qualifiers: Encounter type: initial encounter Injury intent: accidental or unintentional Qualified Code(s): T50.901A - Poisoning by unspecified drugs, medicaments and biological substances, accidental (unintentional), initial encounter Code(s): T50.901A - Poisoning by unspecified drugs, medicaments and biological substances, accidental (unintentional), initial encounter Status: Acute Assessment and Plan: Did discuss illicit drug cessation with patient. Patient states that she thought she was only injecting cocaine was unaware that there were other substances in the the syringe. Will continue to encourage cessation. Consult case management for additional resources for substance abuse. HIV and hepatitis panels negative, LFTs WNL (3) Headache: Code(s): R51.9 - Headache, unspecified Status: Acute Assessment and Plan: Administer fioricet x1 Keep the room dark Monitor for signs and symptoms drug abuse withdrawal --resolved DS: Summary Hospital Course Reason for hospitalization: Drug overdose Community-acquired pneumonia Bacteremia Hospital Course: Patient is a 41-year-old female with a past medical history of drug abuse. She presented to the emergency department via ambulance after being found unresponsive in the children's bathroom. Upon arrival by EMS she was very lethargic and slow to answer questions. Patient reported to EMS that she did inject cocaine just prior to the children finding her. The patient was arousable to verbal stimuli it was able to answer short questions in the emergency department. Patient reports that she thought she is only injecting cocaine however there may have been other substances within the drugs purchased. A drug urinalysis screen was performed which revealed cocaine, amphetamines and benzos. Patient reported that she does do IV drug use and not always using a clean needles therefore hepatitis and HIV panel was drawn during her hospitalization-both of these were negative PCR is however a further HIV testing was sent to another lab and the patient will be called with final reports. Patient also had an ABG that was performed that did reveal hypoxia and a chest x-ray that showed the bilateral pneumonia. A CTA of the chest was performed to rule out a pulmonary embolism, no PE was found however bilateral infiltrates were consistent with pneumonia. Labs were significant for a WBC of 10.6, hemoglobin 13.2, hematocrit 41.5 and platelets 285, sodium 139, potassium 4.6, chloride 106, BUN 16, creatinine 1.1. Minimally elevated AST and LL ALT. Other LFTs WNL. Urinalysis essentially negative. Patient was admitted to the medical unit and started on IV antibiotics and placed on supplemental oxygen of 2 L per nasal cannula. Nebulizer treatments as well as repeat ABG. Patient was able to be titrated off oxygen during her hospitalization and discuss illicit drug cessation a
== END 2021-08-24 11:00 | disposition home or self-care (01) | DRG 812 ==
LOC: ANHED 13:33 → ANH3MEDSUR 14:56
PROVIDERS: Nurse Practitioner Adult Health; Admitting Provider Internal Medicine; Emergency Provider Emergency Medicine; PCP Nurse Practitioner Family; Visit Provider Nurse Practitioner Family
DX: T50.911A Poisoning by multiple unspecified drugs, medicaments and biological substances, accidental (unintentional), initial encounter (principal); J18.9 Pneumonia, unspecified organism; R40.4 Transient alteration of awareness; F19.10 Other psychoactive substance abuse, uncomplicated; R51.9 Headache, unspecified; Z20.822 Contact with and (suspected) exposure to COVID-19
CPT/HCPCS: 36415; 36600; 51701; 71045; 71275; 80048; 80053; 80074; 80307; 81001; 81025; 82805; 82948; 83605; 83735; 84439; 84443; 84480; 85025; 86140; 86703; 87040; 87086; 87502; 93005; 94618; 94640; 94667; 94668; 96361; 96365; 96367; 96372; 96375; 99285; A9270; C9803; G0378; G0379; G0432; J0456; J0696; J1650; J2310; J7030; Q9967; U0003; U0005

== ENCOUNTER 2021-10-18 10:56 | Emergency (ER) | payer OTHER, SELFPAY ==
[2021-10-18] VITALS (26 sets, daily range): BP systolic 105–130; BP diastolic 75–97; PULSE 80–124; RESP 16; TEMP 36.6; O2SAT 96–100
--- NOTE | ~2021-10-18 | XR_ITS ---
XR chest 1V portable DATE: 10/18/2021 11:33 INDICATION: Dizziness. Covid-positive. TECHNIQUE: Portable upright AP view on 10/18/2021 1127 hours COMPARISON: 08/23/2021 portable AP chest FINDINGS: Moderate bilateral hyperinflation. No pulmonary infiltrate or consolidation, pleural effusi on or pulmonary vascular congestion or pneumothorax. Normal heart size. No hilar or mediastinal enlargement. IMPRESSION: Moderate hyperinflation; no active cardiopulmonary disease Reviewed, dictated and finalized at location A.
--- NOTE | ~2021-10-18 | CT_ITS ---
EXAMINATION: CTA chest PE protocol DATE: 10/18/2021 13:52 INDICATION: LT SIDED cp, sob TECHNIQUE: Computed tomography angiography (CTA) of the chest was performed with 100 mL Omnipaque-350 intravenous contrast timed to evaluate the pulmonary arteries. Coronal maximum intensity projection 3D-reconstructions were created by the technologist. The dose-length product (DLP) was 194.46 mGy-cm. Automated exposure control and iterative reconstruction technique were employed. COMPARISON: 08/20/2021. FINDINGS: Study quality: Adequate. Pulmonary arteries: No pulmonary emboli detected. Thoracic aorta: Normal. Lung parenchyma and airways: Clear. Thoracic inlet, axillae and chest wall: Unremarkable. Mediastinum: Normal. Heart and pericardium: Normal. Coronary artery calcifications: Absent. Pleura: Unremarkable. Upper abdomen: No significant finding. Bones: No acute osseous finding. IMPRESSION: No CT evidence of acute pulmonary embolus. Reviewed, dictated and finalized at location K.
--- NOTE | 2021-10-18 11:12 | PC.NURSE ---
Patient report given to STEPHANY Yañez. All questions answered and care of patient transferred.
--- NOTE | 2021-10-18 11:13 | ECG_ITS ---
Measurements Intervals [place] Rate: 88 P: 72 SD: 130 QRS: 69 QRSD: 85 T: 52 QT: 338 QTc: 411 Interpretive Statements SINUS RHYTHM NORMAL ECG Electronically Signed On 10-18-2021 22:55:33 CDT by Israel Tong D.O.
[2021-10-18 11:49] LABS: Basophils Percent Auto 0.2 % (0.2-1.2); Eosinophils Percent Auto 0.4 % (0-4.4); Hematocrit 38.3 % (37.0-47.0); Hemoglobin 13.2 g/dL (12.0-15.0); Immature Granulocyte Absolute 0.02 K/mm3 (0.00-0.031); Immature Granulocyte Percent A 0.4 % (0-0.5); Lymphocytes Absolute Auto 1.94 K/mm3 (0.9-3.2); Lymphocytes Percent Auto 36.1 % (18.3-44.2); Mean Corpuscular HGB Conc 34.5 g/dl (32-36); Mean Corpuscular Hemoglobin 29.8 pg (26-34); Mean Corpuscular Volume 86.5 fl (80-100); Mean Platelet Volume 9.9 fl (7.4-10.4); Monocytes Absolute Auto 0.5 K/mm3 (0.1-0.6); Monocytes Percent Auto 8.9 % (2.6-8.5); Neutrophils Absolute Auto 2.9 K/mm3 (1.3-6.7); Platelet Count Result 280 k/mm3 (150-375); Red Blood Count 4.43 M/mm3 (4.2-5.4); Red Cell Distribution Width 12.1 % (11.5-14.5); White Blood Count 5.4 K/mm3 (4.5-10.0)
[2021-10-18] MEDS: ONDANSETRON HCL ODT 4 MG TABLET PO (11:50)
[2021-10-18] MEDS: MECLIZINE HCL 25 MG TABLET PO (11:50)
[2021-10-18 12:01] LABS: Alanine Aminotransferase 30 U/L (6-35); Albumin Level 4.4 g/dL (3.5-5.1); Alkaline Phosphatase 108 U/L (38-126); Anion Gap 6 mmol/L (8-16); Aspartate Amino Transferase 31 U/L (14-36); Bilirubin,Total 0.3 mg/dL (0.2-1.3); Blood Urea Nitrogen 12 mg/dL (7-17); Calcium 9.1 mg/dL (8.4-10.2); Carbon Dioxide 28 mmol/L (22-30); Chloride 105 mmol/L (98-107); Estimated CRCL calculation 74 ml/min; Estimated Glomerular Filt Rate > 60; Glucose 112 mg/dL (65-110); Potassium 3.7 mmol/L (3.4-5.0); Sodium 139 mmol/L (137-145)
[2021-10-18 12:14] LABS: Troponin I < 0.012 ng/mL (0.000-0.034)
[2021-10-18] MEDS: ALBUTEROL SULFATE (*SP) AEROSOL 1 PUFF 2 PUFF INHALATION (12:28)
[2021-10-18 12:33] LABS: Partial Thromboplastin Time 27.9 SECONDS (22.3-36.8)
[2021-10-18 12:34] LABS: INR 1.1; Prothrombin Time 13.4 Seconds (11.1-14.7)
--- NOTE | 2021-10-18 12:47 | ED.DIZZY ---
HPI - Dizziness General Chief Complaint: Dizziness <CM Andrea Last Filed: 10/18/21 15:38> Stated Complaint: feeling faint <CM Andrea Last Filed: 10/18/21 15:38> Time Seen by Provider: 10/18/21 11:12 <MC Andrea Last Filed: 10/18/21 15:38> Source: patient <CM Andrea Last Filed: 10/18/21 15:38> Mode of arrival: ambulatory <CM Andrea Last Filed: 10/18/21 15:38> Limitations: no limitations <CM Andrea Last Filed: 10/18/21 15:38> History of Present Illness HPI Narrative: This is a 41 year old female that presents to the ER for lightheadedness. Reports she is currently COVID positive. Reports fever, cough, shortness of breath and chest pain. Reports she tried to go to work today, but she was feeling weak and lightheaded having to be on her feet so long. Denies lower extremity edema. <CM Andrea Last Filed: 10/18/21 15:38> Related Data Home Medications: Home Medications Medication Instructions Recorded Confirmed albuterol sulfate 90 mcg/actuation 2 inh inhalation Q4H PRN Shortness 08/20/21 08/20/21 aerosol inhaler Of Breath <CM Andrea Last Filed: 10/18/21 15:38> Allergies/Adverse Reactions: Allergies Allergy/AdvReac Type Severity Reaction Status Date / Time No Known Allergies Allergy Unverified 10/18/21 11:06 <CM Andrea Last Filed: 10/18/21 15:38> Review of Systems Review of Systems: CONSTITUTIONAL: Reports fever ENT: Reports congestion CARDIOVASCULAR: Reports chest pain. Denies edema. RESPIRATORY: Reports cough and dyspnea. <CM Andrea Last Filed: 10/18/21 15:38> All systems reviewed & are unremarkable except as noted in HPI and below <CM Andrea Last Filed: 10/18/21 15:38> [facility] Past Medical History Medical History: Medical History (Updated 10/18/21 @ 15:37 by Dara Jorge PA-C) Drug abuse <Dara Jorge PA-C - Last Filed: 10/18/21 15:38> Surgical History Surgical History: Surgical History (Updated 08/20/21 @ 20:20 by Kady Harris APRN) History of hernia repair <Dara Jorge PA-C - Last Filed: 10/18/21 15:38> Family History Family History: Family History Mother Hypertension Father Family history of diabetes mellitus in first degree relative Other Diabetes mellitus Family history of coronary artery disease Family history of malignant neoplasm <Dara Jorge PA-C - Last Filed: 10/18/21 15:38> Social History Social History: Social History Years smoked: 10 Smoking status: Former smoker Tobacco type: cigarettes and e-cigarettes/vaping Alcohol intake: never Substance use type: crack/cocaine and IV drugs Last use: 08/20/21 Spiritual care concerns: No <Dara Jorge PA-C - Last Filed: 10/18/21 15:38> Exam Narrative: GENERAL: Well-appearing, well-nourished, and in no acute distress. HEAD: Normocephalic, atraumatic. EYES: EOMI. CHEST: No respiratory distress. Scattered expiratory wheezing noted. No rales or rhonchi HEART: Regular rate and rhythm. No murmur heard. Normal peripheral pulses. EXTREMITIES: Normal range of motion. No edema. SKIN: Warm, dry, no rash. NEURO: No focal deficits. Alert and oriented x3. PSYCH: Normal mood and affect <Dara Jorge PA-C - Last Filed: 10/18/21 15:38> Course DINING SERVICE INSPECTOR/PA Physician Supervision For this patient encounter, I reviewed the DINING SERVICE INSPECTOR or PA documentation, treatment plan, and medical decision making <Emmett Salinas MD - Last Filed: 10/18/21 18:23> Vital Signs Vital signs: Vital Signs Temperature 98 F 10/18/21 10:56 Pulse Rate 124 H 10/18/21 10:56 Respiratory Rate 16 10/18/21 10:56 Blood Pressure 126/92 H 10/18/21 10:56 Pulse Oximetry 100
[2021-10-18 13:08] LABS: Appearance Urine Clear (Clear); Bilirubin Urine Negative (Negative); Blood Urine 1+ (Negative); Color Urine Yellow (Yellow); Glucose Urine UA Negative (Negative); Ketones Urine Negative (Negative); Leukocyte Esterase Ur Negative LEU/UL (Negative); Nitrate Urine Negative (Negative); Protein Urine Negative (Negative); Specific Grav Ur >= 1.030 (1.001-1.035); Urobilinogen Urine 0.2 mg/dL (<2.0); pH Urine 5.5 (5.0-9.0)
[2021-10-18 13:14] LABS: Add Urine Microscopic? YES; Mucus Urine Moderate /lpf; RBC Urine 0-2 /hpf (0-2); Squamous Epithelial Cell Urine Moderate /hpf (Few)
[2021-10-18 13:22] LABS: Barbiturate Screen Urine Negative (Negative); Benzodiazepines Screen Urine Negative (Negative)
[2021-10-18 13:24] LABS: Cannabinoid Screen Urine Negative (Negative); Cocaine Screen Urine Positive (Negative); Methadone Screen Urine Negative (Negative); Opiate Screen Urine Negative (Negative); Phencyclidine Screen Urine Negative (Negative)
[2021-10-18 13:55] LABS: Amphetamine Screen Urine Positive (Negative)
== END 2021-10-18 15:56 | disposition home or self-care (01) ==
PROVIDERS: Physician Assistant; Emergency Provider Emergency Medicine; PCP Nurse Practitioner Family
DX: U07.1 COVID-19 (principal); Z87.891 Personal history of nicotine dependence
CPT/HCPCS: 36415; 71045; 71275; 80053; 80307; 81001; 81025; 84484; 85025; 85380; 85610; 85730; 87086; 87088; 93005; 94640; 99284; A9270; Q9967

== ENCOUNTER 2022-02-07 08:42 | Observation (INO) | payer OTHER, SELFPAY ==
[2022-02-07] VITALS (25 sets, daily range): BP systolic 96–110; BP diastolic 62–82; PULSE 76–98; RESP 12–20; TEMP 36.6–37.1; O2SAT 92–100; BMI 27.9
--- NOTE | ~2022-02-07 | US_ITS ---
EXAMINATION: US abdomen limited DATE: 02/08/2022 08:41 INDICATION: Elevated liver function tests TECHNIQUE: Multiple grayscale and Doppler ultrasound images of the abdomen were obtained. COMPARISON: CT dated 07/16/2017 FINDINGS: The pancreatic head and body are normal in appearance. The pancreatic tail is not visualized. Liver has normal echogenicity and contour, with a smooth surface. No liver lesion identified. No intrahepat ic biliary duct dilation suspected. Portal venous flow was seen in the hepatopetal, normal direction and has normal Doppler waveform. Small amount of pericholecystic fluid. Gallbladder appears otherwise normal with no dilation, wall thickening or cholelithiasis to suggest acute cholecystitis. The commo n bile duct measures 3 mm in diameter which is normal. Sonographic Rivas sign was reported as negati ve by the golf cart maker. The visualized inferior vena cava is normal. IMPRESSION: 1. Nonspecific small amount pericholecystic ascites. No intra- or extra hepatic biliary ductal dilati on. Reviewed, dictated and finalized at location A. PROCESSOR IMPRESSION: 1. Nonspecific small amount pericholecystic ascites. No intra- or extra hepatic biliary ductal dilation.
--- NOTE | ~2022-02-07 | XR_ITS ---
XR chest 1V portable DATE: 02/07/2022 09:21 INDICATION: Drug overdose. Evaluate for aspiration. TECHNIQUE: Portable upright AP chest on 02/07/2022 at 0919 hours COMPARISON: 10/18/2021 CTA chest 10/18/2021 portable AP chest FINDINGS: Normal heart size. There is patchy infiltrate in the left lower lobe and to a lesser extent right lower lung. No pleural effusion or pulmonary vascular congestion or pneumothorax. IMPRESSION: Patchy infiltrate in the lower lungs, left greater than right. Given the history of drug overdose, aspiration pneumonitis should be considered. Reviewed, dictated and finalized at location A. TREATER HEAD IMPRESSION: Patchy infiltrate in the lower lungs, left greater than right. Give n the history of drug overdose, aspiration pneumonitis should be considered.
--- NOTE | 2022-02-07 08:53 | PC.NURSE ---
0852 o.4mg of Narcan administered.
--- NOTE | 2022-02-07 09:01 | PC.NURSE ---
00 not able to start IV access and IO access started at left lower leg and 100mg of Lidocaine given. 900 2mg of Narcan administered.
--- NOTE | 2022-02-07 09:08 | ED.GENADULT ---
HPI - General Adult General Chief complaint: Altered Mental Status Stated complaint: unresponsive, now alert, known drug abuser Time Seen by Provider: 02/07/22 08:57 Source: patient, family, EMS and old records reviewed Mode of arrival: EMS Limitations: intoxication History of Present Illness HPI narrative: Patient is a 41 y/o female who presents to the ED with c/o unresponsive/drug overdose. Patient is a known drug user. Per EMS report, patient was found unresponsive next to empty syringe this morning. By the time of EMSs arrival, patient was more alert and responding to verbal stimuli. They did not administer Narcan prior to arrival. Patient does admit to injecting fentanyl this morning. She denies using any other drugs. She has overdosed before and has previously been seen at our facility for this. Patient complains of being cold currently. Denies any other complaints. Mother at bedside reports patient lives across the street from her work and did not show up for work this morning. EMS was then called. Related Data Home Medications Medication Instructions Recorded Confirmed albuterol sulfate 90 mcg/actuation 2 inh inhalation Q4H PRN Shortness 08/20/21 08/20/21 aerosol inhaler Of Breath Allergies Allergy/AdvReac Type Severity Reaction Status Date / Time No Known Allergies Allergy Unverified 10/18/21 11:06 Review of Systems Review of Systems: CONSTITUTIONAL: Reports chills. Denies fever or sweats. CARDIOVASCULAR: Denies chest pain. RESPIRATORY: Denies dyspnea. GASTROINTESTINAL: Denies abdominal pain, nausea, vomiting. PSYCHIATRIC: Denies anxiety or depression. All systems reviewed & are unremarkable except as noted in HPI and below PMFSH Past Medical History Medical History Drug abuse Surgical History Surgical History History of hernia repair Family History Family History Mother Hypertension Father Family history of diabetes mellitus in first degree relative Other Diabetes mellitus Family history of coronary artery disease Family history of malignant neoplasm Social History Social History Years smoked: 10 Smoking status: Former smoker Tobacco type: cigarettes and e-cigarettes/vaping Alcohol intake: never Substance use type: crack/cocaine and IV drugs Last use: 08/20/21 Spiritual care concerns: No Exam Narrative: GENERAL: Mildly ill appearing, well-nourished, non-toxic, in mild acute distress. HEAD: Normocephalic, atraumatic. ENT: PERRLA, EOMI. Conjunctiva clear. MMs dry. Dried vomitus on chin. NECK: Supple. No adenopathy, no masses. RESPIRATORY: Airway patent, respirations nonlabored. Clear to auscultation bilaterally, no rales, rhonchi, wheezing. CARDIOVASCULAR: Tachycardic with regular rhythm without murmurs, rubs, or gallops. Peripheral pulses 2+ and equal bilaterally. ABDOMINAL: Soft, nontender, nondistended, no hepatosplenomegaly. Normoactive BS. MUSCULOSKELETAL: Moves all extremities. Strength/ROM intact without gross deformities. IO in left tibia. Mild edema of extremities/hands/feet. SKIN: Warm, dry, normal color. Scattered track conroy to BUE, hands, toes. No significant signs of infection currently. NEURO: A&O X3. Speech clear. Cranial nerves II-XII grossly intact. Steady gait. Tremulous and shaking. No ataxic movements. PSYCHIATRIC: Appropriate mood and affect. Normal interaction. Course Consultations Consultation #1: Discussed case with OSMANY Vitale, hospitalist, accepted admission. Date: 02/07/22 Vital Signs Vital signs: Vital Signs Temperature 98.7 F 02/07/22 08:38 Pulse Rate 80 02/07/22 08:38 Respiratory Rate 16 02/07/22 08:38 Blood Pressure 110/75 02/07/22 08:38 Pulse Oximetry 95 02/07/22 08:38
--- NOTE | 2022-02-07 09:12 | ECG_ITS ---
Measurements Intervals [place] Rate: 84 P: 68 SC: 145 QRS: 79 QRSD: 103 T: 56 QT: 397 QTc: 470 Interpretive Statements SINUS RHYTHM BASELINE ARTIFACT- I, II, III, AVR, AVL, AVF, V1-V6 NORMAL ECG COMPARED TO ECG 10/18/2021 11:20:17 NO SIGNIFICANT CHANGES Electronically Signed On 02-07-2022 9:54:06 FACILITY MAINTENANCE MANAGER by Israel Tong D.O.
[2022-02-07] MEDS: NALOXONE HCL INJ 2 MG/2 ML AMP (09:15)
[2022-02-07] MEDS: NALOXONE HCL 0.4 MG/ML VIAL (09:15)
[2022-02-07] MEDS: SODIUM CHLORIDE 0.9% IV 1,000 ML 999 ML IV CONT ×2 (09:17→12:20)
[2022-02-07 09:26] LABS: Basophils Percent Auto 0.2 % (0.2-1.2); Hematocrit 40.3 % (37.0-47.0); Hemoglobin 13.3 g/dL (12.0-15.0); Immature Granulocyte Absolute 0.07 K/mm3 (0.00-0.031); Immature Granulocyte Percent A 0.5 % (0-0.5); Lymphocytes Absolute Auto 0.72 K/mm3 (0.9-3.2); Lymphocytes Percent Auto 5.4 % (18.3-44.2); Monocytes Absolute Auto 1.3 K/mm3 (0.1-0.6); Neutrophils Absolute Auto 11.1 K/mm3 (1.3-6.7); Neutrophils Percent Auto 83.9 % (45.5-73.1); Platelet Count Result 287 k/mm3 (150-375); Red Blood Count 4.58 M/mm3 (4.2-5.4); Red Cell Distribution Width 12.4 % (11.5-14.5); White Blood Count 13.3 K/mm3 (4.5-10.0)
[2022-02-07] MEDS: ONDANSETRON INJ 4 MG/2 ML VIAL IV PUSH (09:34)
[2022-02-07 09:39] LABS: Alanine Aminotransferase 155 U/L (6-35); Albumin Level 4.7 g/dL (3.5-5.1); Alkaline Phosphatase 131 U/L (38-126); Anion Gap 15 mmol/L (8-16); Aspartate Amino Transferase 191 U/L (14-36); Bilirubin,Total 0.4 mg/dL (0.2-1.3); Blood Urea Nitrogen 17 mg/dL (7-17); Calcium 8.9 mg/dL (8.4-10.2); Carbon Dioxide 20 mmol/L (22-30); Chloride 107 mmol/L (98-107); Creatine Kinase 1140 U/L (30-135); Estimated CRCL calculation 71 ml/min; Estimated Glomerular Filt Rate > 60; Glucose 107 mg/dL (65-110); Sodium 142 mmol/L (137-145)
[2022-02-07 09:40] LABS: Add Urine Microscopic? YES; Appearance Urine Slightly Cloudy (Clear); Bilirubin Urine Negative (Negative); Blood Urine Negative (Negative); Color Urine Yellow (Yellow); Glucose Urine UA Negative (Negative); Ketones Urine Negative (Negative); Leukocyte Esterase Ur 1+ LEU/UL (Negative); Nitrate Urine Negative (Negative); Protein Urine 1+ mg/dL (Negative); Specific Grav Ur >= 1.030 (1.001-1.035); Urobilinogen Urine 0.2 mg/dL (<2.0); pH Urine 5.5 (5.0-9.0)
[2022-02-07 09:45] LABS: Bacteria Urine Trace /hpf; Hyaline Casts Urine 15-19 /lpf; Mucus Urine Rare /lpf; Squamous Epithelial Cell Urine Many /hpf (Few); WBC Urine 21-30 /hpf
[2022-02-07 11:07] LABS: Ethanol < 10 mg/dL (<10)
--- NOTE | 2022-02-07 11:08 | PC.NURSE ---
1100 Assumed pt care from STEPHANY Costello
[2022-02-07 11:18] LABS: Barbiturate Screen Urine Negative (Negative); Benzodiazepines Screen Urine Negative (Negative)
[2022-02-07 11:21] LABS: Cannabinoid Screen Urine Negative (Negative); Cocaine Screen Urine Negative (Negative); Methadone Screen Urine Negative (Negative); Opiate Screen Urine Negative (Negative); Phencyclidine Screen Urine Negative (Negative)
[2022-02-07 11:51] LABS: Amphetamine Screen Urine Positive (Negative)
[2022-02-07] MEDS: AMPICILLIN SULB 3 GM/NS 100 ML 3 GM/100 ML VIAL IVPB ×2 (15:54→23:06)
[2022-02-07] MEDS: SODIUM CHLORIDE 0.9% IV 1,000 ML 150 ML IV CONT ×2 (15:55→21:57)
--- NOTE | 2022-02-07 17:15 | PM.IMHP ---
H&P: HPI History of Present Illness Date/Time: 02/07/22 17:15 Chief Complaint: Found unresponsive. Narrative: This is a pleasant yet unfortunate 41-year-old female with longstanding history of IV drug use who presented to the emergency department via EMS from home for evaluation after she was found unresponsive. She did not show up for work this morning and on a well check she was found unresponsive and surrounded by drug paraphernalia with an empty syringe. She was arousable on their arrival and responding and on arrival to the emergency department she was given a dose of Narcan with further improvement. 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 Chest x-ray done on arrival showed patchy infiltrates in the lower lungs. Her labs were significant for an elevated CK of 1140, AST 191, ALT 155, alkaline phosphatase 131. She is being admitted in this setting for IV antibiotics for suspected aspiration and IV fluid rehydration for mild rhabdomyolysis. At the time my evaluation she complains only of some mild shortness of breath. She denies fever, chills, sweats, headache, recent cold and flu symptoms, chest pain, pleuritic pain, palpitations, abdominal pain, nausea, vomiting, diarrhea, and dysuria. Review of Systems Review of Systems: Twelve systems were reviewed and are negative except for as per HPI. [facility] Past Medical History Medical History Depression Drug abuse History of seizure History of suicide attempt (08/2021) IV drug abuse Surgical History Surgical History History of hernia repair Family History Family History Mother Hypertension Father Family history of diabetes mellitus in first degree relative Other Diabetes mellitus Family history of coronary artery disease Family history of malignant neoplasm Social History Social History (Updated 02/07/22 @ 22:47 by Lacy Shah PA-C) Social History: Surrogate medical decision maker: Lo Mccoy, mother. Code status: Full code. Years smoked: 10 Smoking status: Former smoker Tobacco type: cigarettes and e-cigarettes/vaping Alcohol intake: never Substance use type: opiates and methamphetamine Other substance usage details: IV methamphetamine and fentanyl use. Last use: 02/07/22 Has the Lack of Transportation Kept You From Medical Appointments or From Getting Medications?: Yes Within the Past 12 Months, Were You Worried Whether Your Food Would Run Out Before You Got Money to Buy More?: Sometimes True What is Your Housing Situation Today?: I Have Housing Are You Worried That in the Next 2 Months, You May Not Have Your Own Housing to Live In?: Yes Do You Have Trouble Paying Your Heating Or Electricity Bill?: No Do You Have Trouble Paying For Medicines?: No Are You Currently Unemployed and Looking for Work?: No Highest Level of Education Completed: High School Diploma/GED Do You Have Trouble With Childcare or the Care of a Family Member?: No Additional living arrangements comments: The patient lives alone in [place]. Additional occupation/education comments: Works at a local [employer]. Spiritual care concerns: No Meds Home Medications and Allergies Home Medications Medication Instructions Recorded Confirmed Type albuterol sulfate 90 mcg/actuation 2 inh inhalation Q4H PRN Shortness 08/20/21 02/07/22 History aerosol inhaler Of Breath sertraline 100 mg tablet 100 mg PO HS 02/07/22 02/07/22 History Allergies Allergy/AdvReac Type Severity Reaction Status Date / Time No Known Allergies Allergy Unverified 10/18/21 11:06 Vital Signs Vital Signs - 24 hr 02/07/22 08:38 02/07/22 08:45 02/07/22 09:39
--- NOTE | 2022-02-07 19:36 | ADMGEN ---
This patient, Jen Sanchez, was admitted to Medical Room 248-. Patient/family oriented to hospital policies and general routines including ID bracelet, bed and alarms, visiting hours, pain management, procedures, bathroom and other care routines, personal items, smoking policy, room service/diet, and visiting hours. Information on how to activate the Rapid Response Team has been discussed. Patient/Family are encouraged to report perceived risks to care and to ask questions if they do not understand what they are told or what they should do.
[2022-02-07] MEDS: SERTRALINE HCL 50 MG TABLET 100 MG PO (23:06)
[2022-02-08] MEDS: SODIUM CHLORIDE 0.9% IV 1,000 ML 150 ML IV CONT ×2 (04:39→13:00)
[2022-02-08] MEDS: AMPICILLIN SULB 3 GM/NS 100 ML 3 GM/100 ML VIAL IVPB ×4 (05:08→23:20)
[2022-02-08 05:23] LABS: Hematocrit 35.1 % (37.0-47.0); Hemoglobin 10.9 g/dL (12.0-15.0); Mean Corpuscular HGB Conc 31.1 g/dl (32-36); Mean Corpuscular Hemoglobin 29.2 pg (26-34); Mean Corpuscular Volume 94.1 fl (80-100); Mean Platelet Volume 10.4 fl (7.4-10.4); Platelet Count Result 210 k/mm3 (150-375); Red Blood Count 3.73 M/mm3 (4.2-5.4); Red Cell Distribution Width 12.6 % (11.5-14.5); White Blood Count 12.4 K/mm3 (4.5-10.0)
[2022-02-08 05:43] LABS: Alanine Aminotransferase 109 U/L (6-35); Albumin Level 3.2 g/dL (3.5-5.1); Alkaline Phosphatase 95 U/L (38-126); Anion Gap 10 mmol/L (8-16); Aspartate Amino Transferase 90 U/L (14-36); Bilirubin,Total 0.4 mg/dL (0.2-1.3); Blood Urea Nitrogen 11 mg/dL (7-17); Calcium 7.8 mg/dL (8.4-10.2); Carbon Dioxide 20 mmol/L (22-30); Chloride 106 mmol/L (98-107); Creatine Kinase 894 U/L (30-135); Estimated CRCL calculation 104 ml/min; Estimated Glomerular Filt Rate > 60; Glucose 88 mg/dL (65-110); Magnesium 1.9 mg/dL (1.6-2.3); Potassium 3.9 mmol/L (3.4-5.0); Sodium 136 mmol/L (137-145)
[2022-02-08 05:50] VITALS: BP 110/54; PULSE 81; RESP 16; TEMP 36.6; O2SAT 99
[2022-02-08 06:55] LABS: Hepatitis B Surface Antigen Negative (Negative)
[2022-02-08 07:01] LABS: HAV RESULT Negative (Negative); Hepatitis B Core IgM Result Negative (Negative)
[2022-02-08 07:12] LABS: Hepatitis C Virus Antibody Negative (Negative)
[2022-02-08 08:20] VITALS: RESP 16; O2SAT 99
--- NOTE | 2022-02-08 14:27 | PM.IMPN ---
Progress Note: A&P Assessment and Plan (1) Opioid overdose: Qualifiers: Encounter type: initial encounter Injury intent: undetermined intent Qualified Code(s): T40.2X4A - Poisoning by other opioids, undetermined, initial encounter Code(s): T40.2X1A - Poisoning by other opioids, accidental (unintentional), initial encounter Status: Acute Assessment and Plan: The patient presented to the emergency department via EMS from home for evaluation after she was found unresponsive surrounded by drug paraphernalia and an empty syringe. On arrival to the emergency department she was given Narcan and admitted that she had injected fentanyl the night prior to admission. 02/08/2022 patient is awake and oriented x3. Will consult care coordination for medication assisted treatment facilities locally. (2) IV drug abuse: Code(s): F19.10 - Other psychoactive substance abuse, uncomplicated Status: Acute Assessment and Plan: As above. Patient's urine tox screen was also positive for methamphetamines which she denies using. (3) Rhabdomyolysis: Qualifiers: Rhabdomyolysis type: non-traumatic Qualified Code(s): M62.82 - Rhabdomyolysis Code(s): M62.82 - Rhabdomyolysis Status: Acute Assessment and Plan: Patient found on the ground by EMS. She reports she is likely on the ground for approximately 11-12 hours. CK on admission 1140 and patient was started on IV fluids with approximately 2 L and S given in the emergency department. Repeat CK on 02/08/2022 894. Will reduce IV fluids and repeat CK this afternoon. Renal function stable. Monitor intake and output. (4) Aspiration pneumonia: Qualifiers: Aspiration pneumonia type: due to vomit Laterality: bilateral Lung location: lower lobe of lung Qualified Code(s): J69.0 - Pneumonitis due to inhalation of food and vomit Code(s): J69.0 - Pneumonitis due to inhalation of food and vomit Status: Acute Assessment and Plan: Patient was found on the ground and noticed to have vomit on her face. Chest x-ray was consistent with patchy infiltrates to bilateral lower lobes right greater than left on admission. Patient was started on Unasyn IV q.6 hours. 02/08/2022 WBC 12.4, patient is afebrile, but still has some pleuritic chest pain. Respirations 16 and SpO2 99% on room air. Will transition to Augmentin 875/125 mg b.i.d. to complete a total of 7 day antibiotic course. (5) Transaminitis: Code(s): R74.01 - Elevation of levels of liver transaminase levels Status: Acute Assessment and Plan: On admission, LFTs elevated-AST 191, ALT 155, alk-phos 131, T bili 0.4. This may be secondary to acute infection and tissue hypoxia. 02/12/2022 Abdominal ultrasound obtained and shows nonspecific small amount of dillan cholecystic ascites but no gallbladder evidence of acute cholecystitis or common bile duct obstruction or dilation. Patient has no abdominal pain. LFTs trending down-AST 90, ALT 109, alk-phos 95, T bili 0.4. Hepatitis panel negative No evidence of acute gallbladder or liver disease (6) Abnormal urinalysis: Code(s): R82.90 - Unspecified abnormal findings in urine Status: Acute Assessment and Plan: UA on admission shows yellow, slightly cloudy, 1+ leukocytes, no nitrates, WBC 21-30, and many epi cells. Patient is currently on Unasyn for aspiration pneumonia as above. Urine culture pending. Plan Code status: Full code Disposition: Plan to discharge home in 24 hours if remains stable Time Spent With Patient Time with patient: 15 - 25 minutes Subjective Date/time seen: 02/08/22 14:27 Patient reports she is feeling better today. She does still have some chest heaviness with deep breathing and nonproductive cough. She has do some dyspnea with activity. No fevers overnight. She denies tremors, diaphoresis, abdominal pain, nausea, vomiting, diarrhea, constipat
[2022-02-08 14:55] LABS: Creatine Kinase 547 U/L (30-135)
[2022-02-08 15:00] VITALS: BP 114/75; PULSE 80; RESP 12; TEMP 36.7; O2SAT 100
[2022-02-08] MEDS: SERTRALINE HCL 50 MG TABLET 100 MG PO (20:09)
[2022-02-08 21:10] VITALS: BP 104/69; PULSE 76; RESP 18; TEMP 36.7; O2SAT 97
[2022-02-09 04:41] VITALS: BP 113/73; PULSE 81; RESP 18; TEMP 36.3; O2SAT 98
[2022-02-09] MEDS: AMPICILLIN SULB 3 GM/NS 100 ML 3 GM/100 ML VIAL IVPB (05:21)
[2022-02-09 05:46] LABS: Basophils Percent Auto 0.4 % (0.2-1.2); Eosinophils Percent Auto 0.3 % (0-4.4); Hematocrit 37.6 % (37.0-47.0); Hemoglobin 12.2 g/dL (12.0-15.0); Immature Granulocyte Absolute 0.02 K/mm3 (0.00-0.031); Immature Granulocyte Percent A 0.3 % (0-0.5); Lymphocytes Absolute Auto 2.03 K/mm3 (0.9-3.2); Lymphocytes Percent Auto 26.9 % (18.3-44.2); Mean Corpuscular HGB Conc 32.4 g/dl (32-36); Mean Corpuscular Hemoglobin 28.8 pg (26-34); Mean Corpuscular Volume 88.9 fl (80-100); Mean Platelet Volume 10.7 fl (7.4-10.4); Monocytes Absolute Auto 0.6 K/mm3 (0.1-0.6); Monocytes Percent Auto 7.7 % (2.6-8.5); Neutrophils Absolute Auto 4.9 K/mm3 (1.3-6.7); Neutrophils Percent Auto 64.4 % (45.5-73.1); Platelet Count Result 244 k/mm3 (150-375); Red Blood Count 4.23 M/mm3 (4.2-5.4); Red Cell Distribution Width 12.7 % (11.5-14.5); White Blood Count 7.5 K/mm3 (4.5-10.0)
[2022-02-09 06:02] LABS: Anion Gap 11 mmol/L (8-16); Blood Urea Nitrogen 8 mg/dL (7-17); Calcium 8.2 mg/dL (8.4-10.2); Carbon Dioxide 24 mmol/L (22-30); Chloride 104 mmol/L (98-107); Creatine Kinase 337 U/L (30-135); Estimated CRCL calculation 106 ml/min; Estimated Glomerular Filt Rate > 60; Glucose 103 mg/dL (65-110); Potassium 3.7 mmol/L (3.4-5.0); Sodium 139 mmol/L (137-145)
--- NOTE | 2022-02-09 07:55 | PM.DS ---
DS: Admitting Diagnosis Discharge Date 02/09/22 1148 Admitting Diagnosis Opioid overdose IV drug abuse Rhabdomyolysis Aspiration pneumonia Transaminitis DS: Discharge Diagnosis Discharge Diagnosis (1) Opioid overdose: Qualifiers: Encounter type: initial encounter Injury intent: undetermined intent Qualified Code(s): T40.2X4A - Poisoning by other opioids, undetermined, initial encounter Code(s): T40.2X1A - Poisoning by other opioids, accidental (unintentional), initial encounter Status: Acute (2) IV drug abuse: Code(s): F19.10 - Other psychoactive substance abuse, uncomplicated Status: Acute (3) Rhabdomyolysis: Qualifiers: Rhabdomyolysis type: non-traumatic Qualified Code(s): M62.82 - Rhabdomyolysis Code(s): M62.82 - Rhabdomyolysis Status: Acute (4) Aspiration pneumonia: Qualifiers: Aspiration pneumonia type: due to vomit Laterality: bilateral Lung location: lower lobe of lung Qualified Code(s): J69.0 - Pneumonitis due to inhalation of food and vomit Code(s): J69.0 - Pneumonitis due to inhalation of food and vomit Status: Acute (5) Transaminitis: Code(s): R74.01 - Elevation of levels of liver transaminase levels Status: Acute (6) Asymptomatic bacteriuria: Code(s): R82.71 - Bacteriuria Status: Acute DS: Summary Hospital Course Reason for hospitalization: unresponsive Hospital Course: Jen Sanchez is a 41-year-old female with longstanding history of IV drug use who presented to the emergency department via EMS from home for evaluation after she was found unresponsive in her home. She did not show up for work the morning of admission and on a well check she was found unresponsive and surrounded by drug paraphernalia and empty syringe. She was arousable on their arrival and responding, however, on arrival to the emergency department she was given a dose of Narcan with further improvement. 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 Not long after injection, she felt as though the drug was to strong and she tried to get to her Narcan but was unable to do so. Chest x-ray showed patchy infiltrates in the lower lungs. Her labs were significant for an elevated CK of 1140, AST 191, ALT 155, alkaline phosphatase 131. She was admitted to the medical floor for management of aspiration pneumonia and rhabdomyolysis. She denied known fever, chills, sweats, headache, recent cold and flu symptoms, chest pain, pleuritic pain, palpitations, abdominal pain, nausea, vomiting, diarrhea, and dysuria. Opioid overdose: The patient presented to the emergency department via EMS from home for evaluation after she was found unresponsive surrounded by drug paraphernalia and an empty syringe. On arrival to the emergency department she was given Narcan and admitted that she had injected fentanyl the night prior to admission. Urine toxicology was positive for methamphetamines, but she denied known use. She required no further narcan doses. She was counseled on her drug use. She reported prior Suboxone treatment, but did not feel the clinic was run well. Care coordination was consulted for community resources. Rhabdomyolysis: Patient found on the ground by EMS.? She reports she is likely on the ground for approximately 11-12 hours.?CK on admission 1140 and patient was started on IV fluids with approximately 2 L given in the emergency department. Repeat CK was trending down to 337 at discharge. Urine output and renal function were stable. Myalgias resolved. Aspiration pneumonia: Patient was found on the ground and noticed to have vomit on her face, per ED notes.? Chest x-ray was consistent with patchy infiltrates to bilateral lower lobes right greater than left on admission suggesting aspiration pneumonia. She was started on Unasyn IV q.6 hours. Leukocytosis resolved and she was afebrile.
[2022-02-09 07:58] VITALS: RESP 18; O2SAT 99
[2022-02-09] MEDS: AMOXICILLIN/CLAVULANATE K 875-125 MG TAB 1 TABLET PO (11:15)
== END 2022-02-09 12:05 | disposition home or self-care (01) ==
LOC: ANHED 15:45 → ANH2MED 19:48
PROVIDERS: Physician Assistant; Admitting Provider Internal Medicine; Emergency Provider Emergency Medicine; PCP Nurse Practitioner Family; Visit Provider Nurse Practitioner Family
DX: T40.2X1A Poisoning by other opioids, accidental (unintentional), initial encounter (principal); F19.10 Other psychoactive substance abuse, uncomplicated; M62.82 Rhabdomyolysis; J69.0 Pneumonitis due to inhalation of food and vomit; R74.01 Elevation of levels of liver transaminase levels; R82.90 Unspecified abnormal findings in urine; R18.8 Other ascites; R40.4 Transient alteration of awareness; N30.01 Acute cystitis with hematuria; F14.10 Cocaine abuse, uncomplicated; F15.90 Other stimulant use, unspecified, uncomplicated; D72.829 Elevated white blood cell count, unspecified; R74.8 Abnormal levels of other serum enzymes; F32.A Depression, unspecified; Y90.0 Blood alcohol level of less than 20 mg/100 ml; Z87.891 Personal history of nicotine dependence; Z79.51 Long term (current) use of inhaled steroids; Z79.899 Other long term (current) drug therapy
CPT/HCPCS: 36415; 71045; 76705; 80048; 80053; 80074; 80307; 81001; 82550; 83735; 85025; 85027; 87086; 87088; 93005; 96361; 96365; 96375; 99285; A9270; G0378; G0379; J0295; J2001; J2310; J2405; J7030

== ENCOUNTER 2022-03-08 19:14 | Emergency (ER) | payer OTHER, SELFPAY ==
[2022-03-08 19:23] VITALS: BP 129/88; PULSE 108; RESP 18; TEMP 36.4; O2SAT 98
--- NOTE | 2022-03-08 20:03 | ED.EYEPROB ---
HPI - Eye Problem General Chief complaint: Eye Problems Stated complaint: rt eye irritation Time Seen by Provider: 03/08/22 19:54 Source: patient Mode of arrival: ambulatory Limitations: no limitations History of Present Illness HPI Narrative: Patient presents today complaining of pain to her right eye. At 5:00 p.m. tonight, she bent over and accidentally poked her right eye with the tip of her aloe plant. She has had some intermittent blurred vision since then, but states that has been improved she has tried no imbi-pyx-hcddolt treatment prior to arrival. Related Data Home Medications Medication Instructions Recorded Confirmed albuterol sulfate 90 mcg/actuation 2 inh inhalation Q4H PRN Shortness 08/20/21 03/08/22 aerosol inhaler Of Breath sertraline 100 mg tablet 100 mg PO HS 02/07/22 03/08/22 buspirone 5 mg tablet 5 mg DAILY 03/08/22 03/08/22 Allergies Allergy/AdvReac Type Severity Reaction Status Date / Time No Known Allergies Allergy Verified 03/08/22 19:36 Review of Systems Review of Systems: CONSTITUTIONAL: Denies body aches, fever, chills, or sweats. EYES: Denies redness, or discharge.+ right eye injury ENT: Denies rhinorrhea, congestion, sore throat, or otalgia. CARDIOVASCULAR: Denies chest pain, palpitations, or edema. RESPIRATORY: Denies cough or dyspnea. GASTROINTESTINAL: Denies abdominal pain, nausea, vomiting, or diarrhea. GENITOURINARY: Denies dysuria or hematuria. SKIN: Denies rash, itching, or wounds. MUSCULOSKELETAL: Denies back pain, joint pain, or myalgia. NEUROLOGIC: Denies headache, numbness, tingling, or weakness. PSYCH: Denies depression or anxiety. [facility] Past Medical History Medical History Depression Drug abuse History of seizure History of suicide attempt (08/2021) IV drug abuse Surgical History Surgical History History of hernia repair Family History Family History Mother Hypertension Father Family history of diabetes mellitus in first degree relative Other Diabetes mellitus Family history of coronary artery disease Family history of malignant neoplasm Social History Social History Social History: Surrogate medical decision maker: Lo Mccoy, mother. Code status: Full code. Years smoked: 10 Smoking status: Former smoker Tobacco type: cigarettes and e-cigarettes/vaping Alcohol intake: never Substance use type: opiates and methamphetamine Other substance usage details: IV methamphetamine and fentanyl use. Last use: 02/07/22 Lack of Transportation: YES Lack of Food: Sometimes True Current Housing: I Have Housing Concerned About Future Housing: YES Difficulty Paying Gas/Electric Bills: No Difficulty Paying for Meds: No Currently Unemployed: No Education: High School Diploma/GED Difficulty w/ Childcare or Family Care: No Additional living arrangements comments: The patient lives alone in [place]. Additional occupation/education comments: Works at a local [employer]. Spiritual care concerns: No Comments At time of signature, I have reviewed and agree with nursing past medical, surgical, social and family history unless otherwise noted. Please see nursing chart for further information. There is no relevant family history pertinent to the presenting complaint Exam Narrative: GENERAL: Well-appearing, well-nourished, and in no acute distress. HEAD: Normocephalic, atraumatic. EYES: EOMI. PERRL. Left eye normal. See procedure note. ENT: Mucous membranes pink and moist. NECK: Normal AROM. CHEST: No respiratory distress. EXTREMITIES: Normal range of motion. SKIN: Warm, dry, no rash. Capillary refill normal. Normal skin turgor. NEURO: No focal deficits. Alert and oriented x3. Gait steady. PSYCH: Normal affect. No signs of depression or
== END 2022-03-08 20:12 | disposition home or self-care (01) ==
PROVIDERS: Emergency Provider Nurse Practitioner; PCP Nurse Practitioner Family
DX: S05.01XA Injury of conjunctiva and corneal abrasion without foreign body, right eye, initial encounter (principal); W22.8XXA Striking against or struck by other objects, initial encounter; F32.A Depression, unspecified; Z87.891 Personal history of nicotine dependence
CPT/HCPCS: 99213; A9270; G0463

== ENCOUNTER 2022-04-07 10:48 | Emergency (ER) | payer OTHER, SELFPAY ==
[2022-04-07 10:53] VITALS: BP 117/74; PULSE 118; RESP 18; TEMP 36.6; O2SAT 100
--- NOTE | 2022-04-07 11:11 | PC.NURSE ---
PT LEFT DEPT WITH STEADY GAIT. PT DENIED NEED TO SEE PROVIDER. PT ASKED TO RECONSIDER, RESPONDED, MY RIDE IS HERE
== END 2022-04-07 11:11 | disposition left against medical advice (07) ==
LOC: ANHED 11:43
PROVIDERS: PCP Nurse Practitioner Family
DX: T50.901A Poisoning by unspecified drugs, medicaments and biological substances, accidental (unintentional), initial encounter (principal)
CPT/HCPCS: 99199